=== PATIENT | male | born 1930 | race Caucasian/White ===

== ENCOUNTER 2016-05-11 18:26 | Inpatient (IN) | payer MEDICARE ==
--- NOTE | ~2016-05-11 | EKG ---
PATIENT: NOLA CARRASCO UNIT #: [id number] Ventricular Rate: 66 BPM Atrial Rate: 66 BPM P-R Interval: 228 ms QRS Duration: 136 ms Q-T Interval: 416 ms QTC Calculation(Bezet): 436 ms P Cullen: 70 degrees Calculated R Cullen: -9 degrees Calculated T Cullen: 21 degrees Diagnosis Line: Sinus rhythm with 1st degree A-V block Diagnosis Line: Right bundle branch block Diagnosis Line: Abnormal ECG Diagnosis Line: When compared with ECG of 11-MAY-2016 17:50, Diagnosis Line: (unconfirmed) Diagnosis Line: No significant change was found Diagnosis Line: Confirmed by MARIUSZ WALLIS MD ([id number]) on 05/12/2016 Diagnosis Line: 5:33:36 PM INTERPRETING MD: BIMAL RONDON
--- NOTE | ~2016-05-11 | CT71 ---
[facility] A Service of [facility] & [facility] RADIOLOGY TEXT RESULTS PATIENT: NOLA CARRASCO LOCATION: [facility] 327- : 32 UNIT #: [id number] AGE: [address]: Hardik De La O MD SEX: M ORDER DR: [id number] [facility] [address] [place], [place] [address] [id number] I MR#: [id number] Acc #: [id number] NAME: NOLA CARRASCO. : 1930 SEX: M STUDY DATE/TIME: 05/11/2016 18:47 UNIT: A U ROOM: [facility] STUDY DESCRIPTION: CT Head Wo Contrast Attending Physician: Enedina Virgen M.D. Referring Physician: Marysol Gamboa A.P.R.N. Ordering Physician: Jose Cadena M.D. Primary Care Physician: Marysol Gamboa A.P.R.N. MEDICAL IMAGING REPORT This report is preliminary unless electronic signature is present EXAM Head CT without. DATE OF EXAM 05/11/2016 HISTORY Loss of site, left eye weakness starting this morning. 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 COMMENT CT of the brain performed axial plane without contrast. COMPARISON There is a comparison from 03/08/2016. TECHNIQUE NOTE: This CT exam was performed with one or more of the following radiation dose reduction techniques: automatic exposure control, adjustment of mA and/or kV according to patient size, and iterative reconstruction. FINDINGS There is no displaced calvarial fracture. There is mucosal thickening in the paranasal sinuses, including right greater than left maxillary sinus with partial opacification of the bilateral ethmoid air cells, but no air-fluid level. Mild mucosal thickening in the sphenoid sinuses and some fluid or inflammatory change in the right greater than left-sided mastoid air cells. There is vascular calcification at the base of the brain. There is no evidence for acute intracranial hemorrhage or extraaxial fluid collection. There is no intracranial mass effect. This study would not [facility] A Service of [facility] & [facility] RADIOLOGY TEXT RESULTS PATIENT: NOLA CARRASCO LOCATION: [facility] 327-01 : 32 UNIT #: [id number] AGE: [address]: Hardik De La O MD SEX: M ORDER DR: be sensitive for intracranial metastatic disease. There is a vague area of low attenuation in the left yolanda-mikal raising concern for small vessel disease in the patient's age group, but otherwise nonspecific. Mild periventricular white matter low-attenuation is probably due to small vessel disease. The patient has had cataract surgery bilaterally. Globes are intact. No acute cortical infarct is suspected but if this is the clinical concern followup imaging is recommended preferably with MRI if the patient is a candidate. IMPRESSION 1. No acute intracranial abnormality suspected but if there is clinical concern for acute CVA followup imaging is recommended preferably with MRI if the patient is candidate. Noncontrast head CT is also not sensitive for intracranial metastatic disease. There is no intracranial mass effect appreciated. I suspect there is some small vessel disease changes present. 2. Paranasal sinus disease, but no sinus air-fluid level. Dictated by... Jalyn Arguello M.D. THIS IS AN ELECTRONICALLY VERIFIED REPORT Jalyn Arguello M.D. at 05/12/2016 10:22 AM ISAÍAS/nicol TD: 05/12/2016 00:05 JOB #: [id number] MEDICAL IMAGING REPORT COPY
--- NOTE | ~2016-05-11 | CT23 ---
[facility] A Service of [facility] & [facility] RADIOLOGY TEXT RESULTS PATIENT: NOLA CARRASCO LOCATION: [facility] 327- : 32 UNIT #: [id number] AGE: [address]: Hardik De La O MD SEX: M ORDER DR: [id number] [facility] [address]. [place], [place] [address] [id number] I MR#: [id number] Acc #: [id number] NAME: NOLA CARRASCO. : 1930 SEX: M STUDY DATE/TIME: 05/11/2016 18:53 UNIT: [address] ROOM: [facility] STUDY DESCRIPTION: CT Angio Neck Attending Physician: Hardik De La O M.D. Referring Physician: Jatinder GrossPConstanceRJennifer Ordering Physician: Jose Cadena M.D. Primary Care Physician: Selam GrossRJennifer MEDICAL IMAGING REPORT This report is preliminary unless electronic signature is present REVISED REPORT SEE ADDENDUM EXAM CT angiogram of head-neck vessels HISTORY Vision loss, loss of sight left eye, weakness, symptoms started this morning, left eye artery occlusion today per patient provided history, history of lymphoma and pancreatic cancer, history of glaucoma. COMMENT This CT exam was performed with one or more of the following radiation dose reduction techniques: Automatic exposure control, adjustment of mA and/or kV according to patient size, and iterative reconstruction. CT angiography head-neck vessels performed during the intravenous administration of 100 mL of Isovue-370 with imaging acquired in the axial plane followed by multiple reconstructed and reformatted images for the purpose of 3-D CT angiography of the head and neck vessels. There is an earlier noncontrast head CT for comparison. There is no prior study of the vessels. CT ANGIOGRAM NECK: There is atherosclerotic vascular calcification at the arch involving great vessel origins, but there probably is not hemodynamically significant narrowing at the great vessel origins from the arch. The innominate origin is not in the field of view. Mild calcified plaque also at the origin of the right subclavian. Evaluation of the right carotid system shows essentially 0% stenosis at the right carotid bifurcation by NASCET criteria. Mild plaque at the origin of the right external carotid artery. There is some calcified plaque at the right carotid siphon with mild stenosis at the supraclinoid STS. [facility] A Service of [facility] & [facility] RADIOLOGY TEXT RESULTS PATIENT: NOLA CARRASCO LOCATION: [facility] 327-01 : 32 UNIT #: [id number] AGE: [address]: Hardik De La O MD SEX: M ORDER DR: ICA likely. Assessment of the left carotid system shows partially calcified atherosclerotic plaque at the bifurcation, mild narrowing of the distal left common carotid artery but by NASCET criteria, there does not appear to be hemodynamically significant narrowing at the proximal internal carotid artery. Using NASCET criteria, essentially 0% stenosis of the left internal carotid artery. There is some calcified plaque in the left carotid siphon with mild stenosis most apparent at the supraclinoid ICA. Right vertebral artery has mild calcified plaque at its origin but this is probably not resulting in hemodynamically significant narrowing. The vessel is patent in the neck. Left vertebral artery has mild calcified plaque at its origin but this is probably not resulting in hemodynamically significant narrowing and the left vertebral artery is patent in the neck. Vertebral system essentially codominant. Evaluation of the intracranial circulation shows improper 3-D kpchk-qlc-sihklt MIP reconstructed imaging. Since this is an acute stroke study, I am interpreting the examination as is and requesting proper reformats. Allowing for this, there is no obvious intracranial vascular cutoff. There is origin to the left posterior cerebral artery distribution. I believe there is a small anterior communicator present. No focal central stenosis is seen. The dural venous sinuses are patent. There is a small right posterior communicator with probably a small infundibulum at its origin versus a 2-3 mm aneurysm. Consider followup with MR angiography to assess for change. The left P1 vessel is probably hypoplastic. There is generalized atrophy. Please be aware that a CT angiogram is not sensitive for retinal artery or ophthalmic artery occlusion. These structures are not typically well seen on the CT angiogram. Some flow can be seen in the bilateral ophthalmic arteries proximally. Patient has had cataract surgery bilaterally. There is streak artifact from dental metal. There is some paranasal sinus disease. There are an increased number of lymph nodes in the neck, many of which are enlarged and this is consistent with lymphoma history. Also multiple enlarged supraclavicular lymph nodes and probably partial demonstration of lymphadenopathy in the upper chest. One of the largest jugular chain level IVB lymph nodes on the right about 2.9 cm long-axis dimension. Again, multiple enlarged nodes seen. There are degenerative changes in the cervical spine. There are postoperative changes to the cervical spine. IMPRESSION 1. There is atherosclerotic vascular calcification involving the neck vasculature, but, by NASCET criteria, essentially 0% stenosis at either carotid bifurcation. Both vertebral arteries are patent. [facility] A Service of [facility] RADIOLOGY TEXT RESULTS PATIENT: NOLA CARRASCO LOCATION: [facility] : 32 UNIT #: [id number] AGE: [address]: Hardik De La O MD SEX: M ORDER DR: Vertebral system is fairly codominant. 2. Disease in the carotid siphons bilaterally with probably mild bilateral supraclinoid ICA narrowing. 3. No intracranial vascular cutoff or focal central stenosis is suspected. Vascular variations are discussed above. There is a small infundibulum or 2-3 mm aneurysm origin of the right posterior communicator. Consider a 1-year followup MR angiogram to reassess, given patient age group and other multiple medical problems. 4. Lymphadenopathy in the neck consistent with known lymphoma. 5. Please be aware that a CT angiogram does not typically evaluate the status of ophthalmic or retinal arteries, given the small size of these vessels. Some flow can be seen in the bilateral relatively proximal ophthalmic arteries. 6. Please be aware there is some technical limitation of the gphiq-ker-lnnood MIP images as noted above. STAT * RESULT Dictated by... Jalyn Arguello M.D. THIS IS AN ELECTRONICALLY VERIFIED REPORT Jalyn Arguello M.D. at 05/11/2016 11:03 PM ISAÍAS/asha TD: 05/11/2016 21:26 JOB #: [id number] ADDENDUM EXAM Addendum to the CT angiogram head and neck from 05/11/2016 ADDENDUM The 3-D MIP twist and tumble images have been post processed again. They are now of better quality. Review of the additional imaging again shows no intracranial vascular cutoff. IMPRESSION Additional images reviewed. Dictated by... Jalyn Arguello M.D. [facility] A Service of [facility] RADIOLOGY TEXT RESULTS PATIENT: NOLA CARRASCO [address] [id number] : 32 UNIT #: [id number] AGE: [address]: Hardik De La O MD SEX: M ORDER DR: THIS IS AN ELECTRONICALLY VERIFIED REPORT Jalyn Arguello M.D. at 05/15/2016 8:11 AM Farheen TD: 05/12/2016 16:09 JOB #: [id number] CC: Susan/lucius Please Delete MEDICAL IMAGING REPORT COPY
--- NOTE | ~2016-05-11 | HP ---
Unit #: [id number] #: [id number] Patient: NOLA CARRASCO [id number] [address] [place], [place] [address] [id number] I MR#: [id number] NAME: NOLA CARRASCO ROOM: [facility] Age: 85 Sex: M Admission Date: 05/11/2016 : 1930 Attending Physician: Enedina Virgen M.D. Referring Physician: Marysol Gamboa A.P.R.N. Primary Care Physician: Marysol Gamboa A.P.R.N. HISTORY AND PHYSICAL CHIEF COMPLAINT Sent by eye doctor for stroke workup. HISTORY OF PRESENT ILLNESS The patient is an 85-year-old male with a past medical history of hypertension, hyperlipidemia, cholangiocarcinoma, valvular heart disease, GERD, low grade lymphoma, who presented to the emergency department for evaluation of the above. The patient states that he was in his usual state of health until the morning of admission at 11:10 when he was watching television and noted loss of vision. He states that the loss of vision was in the lower aspect of his left eye. 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 He sent him to the emergency department for further evaluation. The patient denies a similar problem. He denies any headache. He had apparently seen Dr. Katz within the past year for eye exam. In the emergency department CT of the head was done and there were was nothing acute. CT angiogram of the head and neck showed no critical stenosis and no vascular cutoff. A right posterior communicating artery aneurysm is noted. The official voice clip is pending. He was given 325 mg of aspirin. He is being admitted to [facility] for evaluation and further treatment. PAST MEDICAL HISTORY 1. Admission to [facility] 11/28/2012 through 11/30/2012 for fever. 2. Hypertension. 3. Hyperlipidemia. 4. History of cholangiocarcinoma. 5. The patient underwent Whipple procedure in 05/2012 and was treated with chemotherapy. He is followed by Dr. Vargas. 6. 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 7. Valvular heart disease. 8. GERD. 9. Hypertension. 10. Hyperlipidemia. PAST SURGICAL HISTORY 1. Lymph node biopsy. 2. Rectal fistula repair. 3. Vasectomy. 4. Cervical disc surgery. Unit #: [id number] #: [id number] Patient: NOLA CARRASCO 5. Prostate surgery for BPH. 6. Excision of pilonidal cyst. 7. Removal of nasal polyps. 8. Whipple procedure. SOCIAL HISTORY The patient lives with his . There is no tobacco or alcohol use. FAMILY HISTORY Notable for lung cancer. ALLERGIES None. HOME MEDICATIONS 1. Combigan eye drops t.i.d. 2. Losartan 100 mg daily. 3. Omeprazole 20 mg daily. 4. Amlodipine 5 mg at bedtime. 5. Colace 100 mg t.i.d. p.r.n. REVIEW OF SYSTEMS A 10 point review of systems is negative except as indicated in the HPI. PHYSICAL EXAMINATION VITAL SIGNS: Temperature is 97.9, pulse 80, respirations 17, blood pressure 177/79, oxygen saturation is 97% on room air. GENERAL: The patient is a male who is awake and alert in no acute distress. HEENT: Head is atraumatic. Mucous membranes are moist. NECK: Supple. Trachea is midline. CARDIOVASCULAR: Regular rate and rhythm. LUNGS: Clear to auscultation bilaterally with no increased work of breathing. ABDOMEN: Soft, nontender, with bowel sounds present in all four quadrants. EXTREMITIES: Nontender with no pedal edema. NEUROLOGIC: The patient is awake and alert. He follows commands. He does have loss of the lower visual field involving the left eye. There is no facial asymmetry. PSYCH: Mood and affect are normal. Patient is cooperative. SKIN: Skin of examined areas is warm and dry. DIAGNOSTIC STUDIES CARDIOLOGY STUDIES: EKG shows sinus rhythm with first degree AV block. A right bundle branch is also noted. Heart rate is 77 BPM. IMAGING STUDIES: CT of the head shows nothing acute. CT of the head and neck angiogram shows no critical stenosis. No vascular cutoff. A possible aneurysm in the right posterior communicating artery is noted. There is also lymphadenopathy involving the neck consistent with lymphoma. INR is 1. Troponin is less than 0.05, comprehensive metabolic panel is notable for a glucose of 114, BUN and creatinine 28 and 1.5 respectively. Alk phos is 99, complete blood count notable for white blood cell count of 34.9, platelets are 121. Sed rate is 31, CRP is less than 0.5. Unit #: [id number] #: [id number] Patient: NOLA CARRASCO The patient is an 85-year-old male with: 1. Visual field defect concerning for cerebrovascular accident. The patient received 325 mg of aspirin in the emergency department. 2. Acute kidney injury. 3. The patient's creatinine was 1.2 on 03/11/2016 and it is 1.5 today. He is on losartan, which could be contributing. 4. Hypertension. 5. Hyperlipidemia. 6. History of cholangiocarcinoma, status post Whipple procedure. 7. Valvular heart disease. 8. GERD. 9. 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 10. 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 PLAN 1. Admit to intermediate level for observation. 2. Normal saline of 25 mL an hour. 3. Healthy heart diet. 4. MRI of the brain without contrast. 5. Neuro checks. 6. Stroke protocol per neurology. 7. Consult Dr. Helm regarding cerebrovascular accident. 8. Urinalysis with culture and sensitivity. 9. Hold losartan. 10. Serial cardiac enzyme. 11. Strict I's and O's. 12. Repeat labs in the morning. 13. SCDs for DVT prophylaxis. Dictated by Enedina Virgen M.D. ZAMZAM/suzi TD: 05/12/2016 04:58 JOB #: [id number] HISTORY AND PHYSICAL X Enedina Virgen MD X HISTORY AND PHYSICAL
--- NOTE | ~2016-05-11 | CR72 ---
[facility] A Service of [facility] & [facility] RADIOLOGY TEXT RESULTS PATIENT: NOLA CARRASCO LOCATION: [facility] 327-01 : 32 UNIT #: [id number] AGE: [address]: Hardik De La O MD SEX: M ORDER DR: [id number] [facility] [address] [place], [place] [address] [id number] I MR#: [id number] Acc #: [id number] NAME: NOLA CARRASCO : 1930 SEX: M STUDY DATE/TIME: 05/11/2016 17:47 UNIT: [address] ROOM: [facility] STUDY DESCRIPTION: CR Chest Single View Portable Attending Physician: Enedina Virgen M.D. Referring Physician: Marysol Gamboa A.P.R.N. Ordering Physician: Jose Cadena M.D. Primary Care Physician: Marysol Gamboa A.P.R.N. MEDICAL IMAGING REPORT This report is preliminary unless electronic signature is present EXAM Portable chest. DATE OF EXAM 05/11/2016 HISTORY 85-year-old male with weakness beginning today. COMPARISON Chest, 11/28/2012. FINDINGS Frontal chest demonstrates clear lungs. No pleural effusion or pneumothorax. Heart size and mediastinum are normal. Pulmonary vasculature normal. IMPRESSION No acute cardiopulmonary findings. Dictated by... Chase Cr M.D. THIS IS AN ELECTRONICALLY VERIFIED REPORT Chase Cr M.D. at 05/12/2016 9:18 AM KRUPA/nicol TD: 05/11/2016 23:31 JOB #: [id number] MEDICAL IMAGING REPORT COPY
--- NOTE | ~2016-05-11 | A ---
[facility] Nutrition Therapy DATE: 05/12/16 Patient: NOLA CARRASCO Physician: PEDRO Address: [address] Room/Bed: [address] [place] [address], Zip: [place] [address] Admit Date: 05/11/16 Date of : 32 Height: 6 2 Weight: 210 95.4 NUTRITIONAL ASSESSMENT: REASON: STROKE PROTOCOL CONSULT 85 YO MALE ADMITTED FOR POSSIBLE CVA PMH: HTN, HLD, VALVULAR HEART DISEASE, GERD Anthropometrics: HT: 6'2" WT: 95.4 KG BMI: 27 DIET: HEART HEALTHY Assessment: RD spoke with the pt at bedside. Pt reports eating well since diet advancement, and denies having any chewing or swallowing issues. RD provided heart healthy diet education, and provided the pt and his with printed materials for reference. RD encouraged the pt to contact RD with any quesitons. RD to remain available. Recommendations: 1. Pt to follow a heart healthy diet as intstructed by RD. Please consult RD for any further nutritional needs. Respectfully, JASMYN MCCLAIN RD, LD [facility] cc: client file
--- NOTE | ~2016-05-11 | CT17 ---
[facility] A Service of [facility] & [facility] RADIOLOGY TEXT RESULTS PATIENT: NOLA CARRASCO LOCATION: [facility] 327-01 : 32 UNIT #: [id number] AGE: [address]: Enedina Virgen MD SEX: M ORDER DR: [id number] [facility] [address] [facility] [address]. [place], [place] [address] [id number] E MR#: [id number] Acc #: [id number] NAME: NOLA CARRASCO : 1930 SEX: M STUDY DATE/TIME: 05/11/2016 18:53 UNIT: [facility] ROOM: STUDY DESCRIPTION: CT Angio Head Attending Physician: Jose Cadena M.D. Referring Physician: Marysol Gamboa A.P.R.N. Ordering Physician: Jose Cadena M.D. Primary Care Physician: Marysol Gamboa A.P.R.N. MEDICAL IMAGING REPORT This report is preliminary unless electronic signature is present EXAM CT angio head, 05/11/2016 HISTORY Vision loss, loss of sight left eye, weakness, symptoms started this morning, left eye artery occlusion today per patient provided history, history of lymphoma and pancreatic cancer, history of glaucoma. FINDINGS Please see CT ANGIO NECK report for combined text results. STAT * RESULT Dictated by... Jalyn Arguello M.D. THIS IS AN ELECTRONICALLY VERIFIED REPORT Jalyn Arguello M.D. at 05/11/2016 11:03 PM ISAÍAS/asha TD: 05/11/2016 21:42 JOB #: [id number] MEDICAL IMAGING REPORT COPY
--- NOTE | ~2016-05-11 | MR17 ---
[facility] A Service of [facility] & [facility] RADIOLOGY TEXT RESULTS PATIENT: NOLA CARRASCO LOCATION: [facility] 327- : 32 UNIT #: [id number] AGE: [address]: Hardik De La O MD SEX: M ORDER DR: [id number] [facility] [address] [place], [place] [address] [id number] I MR#: [id number] Acc #: [id number] NAME: NOLA CARRASCO. : 1930 SEX: M STUDY DATE/TIME: 05/12/2016 12:20 UNIT: [address] ROOM: [facility] STUDY DESCRIPTION: MR Brain WWo Contrast Attending Physician: Hardik De La O M.D. Referring Physician: Marysol Gamboa A.P.R.N. Ordering Physician: Andre Helm M.D. Primary Care Physician: Marysol Gamboa A.P.R.N. MRI CENTER REPORT This report is preliminary unless electronic signature is present. EXAM Brain MRI with and without contrast. HISTORY Loss of sight in left eye yesterday. Additional history of pancreatic cancer. TECHNIQUE Multiplanar imaging of the brain was performed with and without contrast including diffusion weighted images. 20 mL of MultiHance was used. FINDINGS On diffusion weighted images, there is no evidence of abnormal restricted diffusion to suggest a recent infarct. The routine brain images show mild chronic ischemic changes in the periventricular deep white matter and mild atrophy. There is no evidence of mass lesion, hemorrhage or edema. Postcontrast imaging shows no abnormal enhancement. Extraaxial structures are remarkable for inflammatory changes in the petrous and mastoid air cells bilaterally. There is mild mucosal thickening in the paranasal sinuses as well. IMPRESSION 1. No acute findings. 2. 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 3. Atrophy with mild chronic ischemic changes around the ventricles. STAT * RESULT Dictated by... Franco Roldan M.D. THIS IS AN ELECTRONICALLY VERIFIED REPORT Franco Roldan M.D. at 05/12/2016 4:37 PM [facility] A Service of [facility] & [facility] RADIOLOGY TEXT RESULTS PATIENT: NOLA CARRASCO LOCATION: [facility] 327-01 : 32 UNIT #: [id number] AGE: [address]: Hardik De La O MD SEX: M ORDER DR: Morteza TD: 05/12/2016 13:11 JOB #: [id number] MRI CENTER REPORT COPY
--- NOTE | ~2016-05-11 | CO ---
Unit #: [id number] #: [id number] Patient: NOLA CARRASCO [id number] [facility] [address] [facility]. [place], [place] [address] [id number] I MR#: [id number] NAME: NOLA CARRASCO ROOM: 327 Age: 85 Sex: M Admission Date: 05/11/2016 : 1930 Attending Physician: Hardik De La O M.D. Primary Care Physician: Marysol Gamboa A.P.R.N. Consultation Date: 05/12/2016 CONSULTATION REPORT PRIMARY CARE PHYSICIAN Marysol Gamboa A.P.R.N. REASON FOR CONSULTATION Loss of vision. PATIENT IDENTIFICATION This is an 85-year-old, right-handed, white male, who is evaluated in room 327 at [facility]. SOURCE OF INFORMATION The patient and evaluation done by admitting team and my discussion with ER physician. PROBLEM LIST 1. Hypertension. 2. Hyperlipidemia. 3. History of cholangiocarcinoma. 4. 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 5. Valvular heart disease. 6. GERD. 7. Lymph node biopsy. 8. Rectal fissure repair. 9. Vasectomy. 10. Cervical disk surgery. 11. Prostate surgery for BPH. 12. Excision of pilonidal cyst. 13. Removal of nasal polyps. 14. Whipple procedure. 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 and he suddenly noticed that in the left eye, he had loss of vision in the lower aspect. It was not in the right eye and he did not realize that part of the upper nasal quadrant was also gone. Now, he has very minimal residual towards the middle and outer temporal left quadrant, otherwise full loss of vision in the left eye. He ended up seeing Dr. Katz and he did a dilated ophthalmologic exam and told him that most likely he has retinal artery occlusion. So, he came to the hospital. He ended up having stroke work up. His CTA was okay. Other workup is in progress. He has had an MRI done. His CT was okay. There is nothing Unit #: [id number] #: [id number] Patient: NOLA CARRASCO suggesting hypercoagulable state yet and there was nothing suggesting dysrhythmia. No falls or injuries. No eye pain. No prior events of TIA, stroke or seizures. He was given aspirin. PAST MEDICAL HISTORY As discussed above. PAST SURGICAL HISTORY As discussed above. ALLERGIES None. HOME MEDICATIONS Combigan eyedrops, losartan, omeprazole, amlodipine, Colace. FAMILY HISTORY Lung cancer. SOCIAL HISTORY The patient is . He lives with his . No tobacco, alcohol, or drug use. REVIEW OF SYSTEMS CONSTITUTIONAL: The patient denies any weight issues, fever, chills, rigor, or sweats. HEENT: No headaches. No double vision, earache, runny nose, or sore throat. CARDIOVASCULAR: No chest pain, clubbing, cyanosis, orthopnea, or palpitation. PULMONARY: No shortness of air, cough, or expectoration. GI: No nausea, vomiting, diarrhea, or constipation. GENITOURINARY: No genitourinary symptoms. EXTREMITIES: No extremity problems, otherwise no back problems. PSYCHIATRIC: No psychotic issue. NEUROLOGIC: As discussed. LYMPHATIC: He has a history of lymphoma and cholangiocarcinoma as discussed. No other hematologic, dermatologic, or endocrine problems. PHYSICAL EXAMINATION VITAL SIGNS: Temperature 97.8, pulse 80, respirations 18, blood pressure 153/79, O2 sats were 95% to 100%. Weight of 210 pounds. BMI was 27. NEUROLOGICAL: The patient is awake. He is alert. He is oriented. He can name and he can follow commands. No right/left confusion. No finger agnosia. Cranial nerve examination demonstrates full haq of vision to confrontation on the right side. Left side, there is a fraction, which is the medial portion of the left superior temporal quadrant. He cannot see in the periphery. Eye movements are conjugate. Pupils are sluggishly Unit #: [id number] #: [id number] Patient: NOLA CARRASCO reactive, size about 2 mm. I could not do a funduscopic examination. No ptosis. No nystagmus. Sensation on the face and scalp are normal. Strength of muscles of facial expression normal. Hearing seemed to be intact. Tongue was midline. Uvula was midline. Palate elevation was normal. Head turning and shoulder shrugs were unremarkable. Motor examination demonstrated normal bulk, tone. Strength was essentially 5/5. Sensory examination is intact for soft touch and pain sensation. No extinction was seen. Romberg was not evaluated. Gait examination was deferred. I could not get any reflexes. Toes are equivocal. Coordination was normal. DIAGNOSTIC STUDIES LABORATORY RESULTS: Reviewed. His hemoglobin A1c was 6.3. His cholesterol was 149, LDL was 97. White count was 31.2, it was 34.9 yesterday, hemoglobin was 12.9, platelet count is 110. Urinalysis did not show anything. IMAGING STUDIES: Reviewed. CT of head and CTA reviewed and essentially unremarkable. IMPRESSION This is a very interesting 85-year-old gentleman with loss of vision. This may be central retinal artery occlusion that may have a little bit of area spared. Relying on ophthalmology evaluation. There is nothing on the right side. So, that means that there may be just retinal artery problem. I definitely want to do an MRI. If the MRI does not show anything in the brain, then we can just put him on aspirin and do electively event monitor and GLADYS. I will put him on Lipitor also. If the MRI shows something like embolic type phenomenon acutely, then I may have to aggressively anticoagulate him here and go from there. Stroke education and modification of stroke risk factors, lipid-lowering medication, and follow up with Dr. Esparza. Also, he is seeing laryngologist anyway, so we may ask them to help us guide us regarding coagulation state in this patient. Avoid dehydration. We will check his B12 level, folate level and other tests. Call me for any other questions, issues, or concerns and if everything is okay, he may be discharged later to follow up as outpatient. Dictated by... Bing Plata/ronna TD: 05/13/2016 02:04 JOB #: [id number] Unit #: [id number] #: [id number] Patient: NOLA CARRASCO CONSULTATION REPORT X Andre Helm MD CONSULTATION REPORT
--- NOTE | ~2016-05-11 | DS ---
Unit #: [id number] #: [id number] Patient: NOLA CARRASCO [id number] [address] [place], [place] [address] [id number] I MR#: [id number] NAME: NOLA CARRASCO. ROOM: 327 Age: 85 Sex: M Admission Date: 05/13/2016 : 1930 Discharge Date: 05/14/2016 Attending Physician: Hardik De La O M.D. Referring Physician: Marysol Gamboa A.P.R.N. Primary Care Physician: Marysol Gamboa A.P.R.N. DISCHARGE SUMMARY DIAGNOSIS ON ADMISSION Acute cerebrovascular accident. DIAGNOSES ON DISCHARGE 1. Left central retinal artery occlusion. 2. History of lymphoma. 3. Hypertension. 4. Hyperlipidemia. 5. Gastroesophageal reflux disease. 6. History of Whipple procedure. 7. History of cholangiocarcinoma. 8. Acute kidney injury, resolved. CONSULTATIONS 1. Dr. Helm in Neurology consultation. 2. Dr. Vargas in Oncology consultation. DIAGNOSTIC STUDIES LABORATORY: Creatinine is 1.5, sodium 136, and potassium is 3.9. WBC 26.4, hemoglobin 12.4, and platelet count is 103,000. Urine culture did not reveal any growth. IMAGING: CT angiogram of the neck revealed atherosclerotic vascular calcification involving the neck vasculature. CT scan of the abdomen and pelvis revealed extensive lymphadenopathy in the abdomen and pelvis consistent with patient's slow-growing lymphoma. MRI of the brain did not reveal any acute findings. There was chronic sinusitis and mastoid air cells present bilaterally. HOSPITAL COURSE An 85-year-old male presented to the hospital with left eye decreased vision. Details are as per admission History and Physical. Patient was seen by Dr. Helm in consultation, who did workup. After workup, it was thought that patient has left central retinal artery occlusions, and she was advised to take Lipitor and aspirin. History of low-grade lymphoma. Patient was seen by Dr. Vargas in consultation who ordered a CT scan of the abdomen. The results are as above. Patient will follow up with him on an outpatient basis. Today, patient is comfortable and is not in any acute distress. He wants to go home. PHYSICAL EXAMINATION Unit #: [id number] #: [id number] Patient: NOLA CARRASCO VITAL SIGNS: Temperature of 97.5, pulse is 66 per minute, respiratory rate is 16 per minute, and blood pressure is 137/74. HEENT: No conjunctival congestion. Sclerae are nonicteric. NECK: Supple. Trachea is central. RESPIRATORY: Breath sounds equal bilaterally. No wheezes or crackles. HEART: Regular rate and rhythm, S1 and S2. ABDOMEN: Soft and nontender. Bowel sounds are present in all four quadrants. NEUROLOGICAL: Strength is 5+ bilaterally. SKIN: Warm and dry. RECOMMENDATIONS ON DISCHARGE 1. Condition is stable. 2. Activity as tolerated. DISCHARGE MEDICATIONS 1. Norvasc 5 mg at bedtime. 2. Colace 100 mg t.i.d. p.r.n. 3. Losartan 100 mg daily. 4. Multivitamin 1 tablet p.o. daily. 5. Enteric-coated aspirin 325 mg p.o. daily. 6. Prilosec 20 mg p.o. daily. 7. Lipitor 40 mg p.o. at bedtime. FOLLOWUP Patient is advised to follow with primary care physician in one week and with Dr. Fabian Esparza in three to four weeks. Patient is advised to follow up with Dr. Vargas as scheduled. Patient is advised to have a fasting lipid profile and LFTs done in six weeks with primary care physician. The plan was discussed in detail with patient and family, and they showed complete understanding. Dictated by... Bing Sanchez TD: 05/14/2016 17:53 JOB #: [id number] CC: Fabian Esparza II., M.D. Ajmal H. Bangash, M.D. Vijay M. Raghavan, M.D. DISCHARGE SUMMARY X Hardik De La O MD DISCHARGE SUMMARY
--- NOTE | ~2016-05-11 | CT2 ---
[facility] A Service of [facility] & [facility] RADIOLOGY TEXT RESULTS PATIENT: NOLA CARRASCO LOCATION: [facility] 327- : 32 UNIT #: [id number] AGE: [address]: Hardik De La O MD SEX: M ORDER DR: [id number] [facility] [address] [facility]. [place], [place] [address] [id number] I MR#: [id number] #: [id number] NAME: NOLA CARRASCO. : 1930 SEX: M STUDY DATE/TIME: 05/12/2016 17:46 UNIT: [address] ROOM: [facility] STUDY DESCRIPTION: CT Abd and Pelv W Cont Attending Physician: Hardik De La O M.D. Referring Physician: Marysol Gamboa A.P.R.N. Ordering Physician: Hardik De La O M.D. Primary Care Physician: Marysol Gamboa A.P.R.N. MEDICAL IMAGING REPORT This report is preliminary unless electronic signature is present EXAM CT abdomen and pelvis with contrast 05/12/2016 HISTORY Followup pancreatic cancer 2012, also has a known history of lymphoma. COMMENT CT of the abdomen and pelvis performed during the intravenous administration of 100 mL of Isovue-370. Small amount of oral contrast is also present. This CT exam was performed with one or more of the following radiation dose reduction techniques: automatic exposure control, adjustment of mA and/or kV according to patient size, and iterative reconstruction. COMPARISON STUDIES Comparison study is from 11/19/2015. FINDINGS The lung bases are clear. There is lymphadenopathy in the periaortic region lower chest. This is present previously and sample measurements relatively stable. CT ABDOMEN: CT abdomen shows a stable calcified lesion right posterior lobe of the liver. No suspicious liver mass. Patient has had a cholecystectomy. There are splenic granulomata. The tail of the pancreas is fatty replaced and atrophic. The patient has had a Whipple procedure. Patient has extensive lymphadenopathy in the abdomen and pelvis consistent with known lymphoma diagnosis. Extensive lymphadenopathy is most confluent at the root of the mesentery and this includes postoperative pancreatic bed area. It is not possible to distinguish between lymphadenopathy from the patient's lymphoma or lymphadenopathy from STS. [facility] A Service of [facility] RADIOLOGY TEXT RESULTS PATIENT: NOLA CARRASCO LOCATION: [facility] 327-01 : 32 UNIT #: [id number] AGE: [address]: Hardik De La O MD SEX: M ORDER DR: pancreatic cancer. Some sample measurements are as follows. There is a 3.4 cm in diameter right anterior mesenteric lymph node which appears to be stable. There is what is probably some matted lymphadenopathy to the left of the root of the mesentery which is mildly larger currently about 3.6 x 2.1 cm compared to 3.2 x 1.8 cm. There is a lymph node anteriorly right paramedian mesenteric about 3.1 cm AP dimension where it was previously about 2.2 cm AP dimension, increased in size. A large lymph node more inferiorly in the left anterior paramedian mesentery about 3.4 cm diameter as compared to 2.[address] PELVIS: In the pelvis again lymphadenopathy along the right external iliac chain about 3.5 x 2.3 cm as compared to 3.4 x 2.3 cm and along the left iliac chain about 3.2 x 1.9 cm compared to 2.4 x 1.7 cm. Overall lymphadenopathy in the abdomen and pelvis is mildly increasing and this is consistent with known diagnosis of a slow growing lymphoma. There is some bilateral perinephric stranding and bilateral renal parenchymal thinning. There is no hydronephrosis. There is an exophytic left upper pole renal cyst and a small probable cyst interpolar left kidney. There is what is likely a nonobstructing calculus at the left lower pole kidney, unchanged. There are vascular calcifications in the abdominal aorta but there is no abdominal aortic aneurysm. There is some ectasia of the right common iliac vessel. The adrenal glands are thickened bilaterally more so on the left than right but unchanged. There is disease at the origin of the celiac axis and superior mesenteric artery but the vessels are patent. I suspect that there is some component of wall thickening of the small bowel loop anastomosed with the stomach but this is best pursued with endoscopic evaluation. Circumferential thickening is suspected on current study, new from previous. Evaluation of the remainder of the pelvis shows severe sigmoid diverticulosis. There is stranding in the adjacent fat and I cannot exclude subtle diverticulitis but the appearance is not changed. The bladder is largely contracted and the patient has probably had prior TURP surgery to the prostate gland. Appendix not optimally seen but visualized portion is normal. Nothing to suggest bowel obstruction or appendicitis. No free intraperitoneal air. Arthritis in the sacroiliac joints, degenerative changes in the lumbar spine. IMPRESSION 1. Redemonstration of postoperative changes consistent with previous Whipple procedure. There is some circumferential thickening of the small bowel loop draining the gastric remnant which is probably new when comparison is made to the previous study from 11/19/2015. This is nonspecific and mucosal pathology is best characterized further with direct visualization. 2. This patient has extensive lymphadenopathy in the abdomen pelvis and the appearance is consistent with patient's known slow-growing lymphoma. Many of the lymph nodes are stable in size but others are mildly increased in size and sample measurements are given above. [facility] A Service of [facility] RADIOLOGY TEXT RESULTS PATIENT: NOLA CARRASCO LOCATION: [facility] 327- : 32 UNIT #: [id number] AGE: [address]: Hardik De La O MD SEX: M ORDER DR: Please be aware that it is not possible to distinguish between metastatic lymphadenopathy from the patient's prior pancreatic cancer and lymphadenopathy from the patient's known current lymphoma. 3. Post cholecystectomy but no intrahepatic biliary ductal dilatation. 4. Severe sigmoid diverticulosis. Not possible to exclude some mild superimposed diverticulitis but the appearance is not changed. There is no bowel obstruction, drainable fluid collection or free intraperitoneal air. 5. Degenerative change in the spine. 6. Extensive atherosclerotic vascular calcifications. 7. Visualized appendix is unremarkable. STAT * RESULT Dictated by... Jalyn Arguello M.D. THIS IS AN ELECTRONICALLY VERIFIED REPORT Jalyn Arguello M.D. at 05/15/2016 8:11 AM Farheen TD: 05/12/2016 18:25 JOB #: [id number] MEDICAL IMAGING REPORT COPY
--- NOTE | ~2016-05-11 | EKG ---
PATIENT: NOLA CARRASCO UNIT #: [id number] Ventricular Rate: 77 BPM Atrial Rate: 77 BPM P-R Interval: 230 ms QRS Duration: 136 ms Q-T Interval: 422 ms QTC Calculation(Bezet): 477 ms P [place]: 74 degrees Calculated R Jar[place]: 13 degrees Calculated T Jar[place]: 25 degrees Diagnosis Line: Sinus rhythm with 1st degree A-V block Diagnosis Line: Right bundle branch block Diagnosis Line: Abnormal ECG Diagnosis Line: When compared with ECG of 11-MAR-2016 09:49, Diagnosis Line: No significant change was found Diagnosis Line: Confirmed by MARIUSZ WALLIS MD ([id number]) on 05/12/2016 Diagnosis Line: 5:15:24 PM INTERPRETING MD: BIMAL RONDON
[2016-05-11 17:58] LABS: BASOPHIL# 0.1 X10e3 (0-0.3); BASOPHIL% 0.2 % (0-2.5); EOSINOPHIL# 0.3 X10e3 (0-0.7); EOSINOPHIL% 0.8 % (0.0-7.0); HEMATOCRIT 40.9 % (38.0-50.0); HEMOGLOBIN 13.8 gm/dL (13.0-16.0); LYMPHOCYTE# 25.5 X10e3 (1.0-3.5); MEAN CELL VOLUME 93.8 FL (83-96); MEAN CORPUSCULAR HEMOGLOBIN 31.6 PG (28-34); MEAN CORPUSCULAR HGB CONC 33.7 g/dL (30-36); MEAN PLATELET VOLUME 9.1 FL (6.5-11.5); MONOCYTE# 1.5 X10e3 (0-1.0); MONOCYTE% 4.3 % (3.0-12.0); NEUTROPHIL# 7.6 X10e3 (1.5-7.1); NEUTROPHIL% 21.7 % (40-75); PLATELET COUNT 121 X10e3 (140-420); RED BLOOD COUNT 4.36 X10e (3.90-5.60); RED CELL DISTRIBUTION WIDTH 14.3 % (11.0-15.5); WHITE BLOOD COUNT 34.9 X10e3 (4.0-10.5)
[2016-05-11 18:00] LABS: DIFF IND YES
[2016-05-11 18:06] LABS: PARTIAL THROMBOPLASTIN TIME 25.3 SECONDS (23.5-31.3); PROTHROMBIN TIME (PATIENT) 10.6 SECONDS (9.6-11.5)
[2016-05-11 18:10] LABS: POC - CKMB 1.5 ng/mL (0.0-7.9); POC - TROPONIN <0.05 ng/mL (<=0.05)
[2016-05-11 18:14] LABS: ALBUMIN SERUM 4.5 g/dL (3.5-5.0); ALKALINE PHOSPHATASE 99 U/L (32-92); ALT (SGPT) 16 U/L (10-40); AST (SGOT) 24 U/L (10-42); BILIRUBIN,TOTAL 0.7 mg/dL (0.2-2.0); BLOOD UREA NITROGEN 28 mg/dL (9-23); BUN/CREATININE RATIO 18.66; CALCIUM SERUM 9.2 mg/dL (8.4-10.2); CARBON DIOXIDE 25 mmol/L (22-31); CHLORIDE 107 mmol/L (100-111); CREATININE SERUM 1.5 mg/dL (0.6-1.4); GLOM FILT RATE Estimated 47.5 mL/min (>60); GLUCOSE FASTING 114 mg/dL (70-110); POTASSIUM 4.4 mmol/L (3.5-5.1); SODIUM 137 mmol/L (135-145)
[2016-05-11 18:16] LABS: BILIRUBIN, DIRECT <0.1 mg/dL (0.0-0.2); BILIRUBIN,INDIRECT 0.6 mg/dL (0.0-0.9)
[2016-05-11 18:17] LABS: PLATELET ESTIMATE DECREASED (NORMAL); RBC NORMAL YES
[2016-05-11 18:18] LABS: ANISOCYTOSIS SL
[~2016-05-11 18:26] MED LIST: AMLODIPINE BESYL5 MG PO; ASPIRIN PO; AUGMENTIN PO; BENAZEPRIL PO; CARDURA PO; CEROVITE SENIO1 EACH PO; CIALIS PO; COMBIGAN EYE DRO5 ML OU; COZAAR100 MG PO; DIFLUCAN100 MG PO; DOC-Q-LACE100 MG PO; DOCUSATE SODIU100 MG PO; FEOSOL PO; GLUCOSAMINE CHONDROI; GLUCOSAMINE-CH1 EAC8 PO; LEVOFLOXACIN500 MG PO; LOPRESSOR PO; LOSARTAN POTAS100 MG PO; LOSARTAN POTASS50 MG PO; LOTREL 5/20 MG1 CAP PO; MULTI-VITAMIN1 TAB PO; NORVASC PO; OMEPRAZOLE20 M1 PO; OMEPRAZOLE40 M1 PO; OMEPRAZOLE40 MG PO; ONE DAILY COMPL1 TA1 PO; PRAVACHOL PO; PRAVASTATIN SOD40 MG PO; SENIOR TABS1 EACH PO
[2016-05-12 01:17] LABS: CK TOTAL 50 IU/L (36-174)
[2016-05-12 02:23] LABS: URINE APPEARANCE CLEAR; URINE BILIRUBIN NEG (NEG); URINE BLOOD NEG (NEG); URINE COLOR YELLOW; URINE GLUCOSE NEG (NEG); URINE KETONE NEG (NEG); URINE LEUKOCYTE ESTERASE NEG (NEG); URINE NITRATE NEG (NEG); URINE PH 6.5 (5-8); URINE PROTEIN NEG (NEG); URINE SPECIFIC GRAVITY 1.023 (1.003-1.035); URINE UROBILINOGEN 0.2 MG/DL (NEG)
[2016-05-12 02:30] LABS: CULTURE INDICATED? NO
[2016-05-12 07:00] LABS: BASOPHIL# 0.2 X10e3 (0-0.3); BASOPHIL% 0.5 % (0-2.5); EOSINOPHIL# 0.3 X10e3 (0-0.7); EOSINOPHIL% 0.9 % (0.0-7.0); HEMATOCRIT 39.4 % (38.0-50.0); HEMOGLOBIN 12.9 gm/dL (13.0-16.0); LYMPHOCYTE# 18.5 X10e3 (1.0-3.5); LYMPHOCYTE% 59.4 % (17.0-45.0); MEAN CELL VOLUME 93.8 FL (83-96); MEAN CORPUSCULAR HEMOGLOBIN 30.6 PG (28-34); MEAN CORPUSCULAR HGB CONC 32.7 g/dL (30-36); MONOCYTE% 3.1 % (3.0-12.0); NEUTROPHIL# 11.2 X10e3 (1.5-7.1); NEUTROPHIL% 36.1 % (40-75); PLATELET COUNT 110 X10e3 (140-420); RED CELL DISTRIBUTION WIDTH 13.8 % (11.0-15.5); WHITE BLOOD COUNT 31.2 X10e3 (4.0-10.5)
[2016-05-12 07:01] LABS: DIFF IND NO
[2016-05-12 07:13] LABS: CK TOTAL 59 IU/L (36-174)
[2016-05-12 07:27] LABS: ALBUMIN SERUM 3.9 g/dL (3.5-5.0); ALKALINE PHOSPHATASE 86 U/L (32-92); ALT (SGPT) 14 U/L (10-40); AST (SGOT) 20 U/L (10-42); BILIRUBIN,TOTAL 0.6 mg/dL (0.2-2.0); BLOOD UREA NITROGEN 24 mg/dL (9-23); CALCIUM SERUM 9.1 mg/dL (8.4-10.2); CARBON DIOXIDE 25 mmol/L (22-31); CHLORIDE 106 mmol/L (100-111); CREATININE SERUM 1.2 mg/dL (0.6-1.4); GLOM FILT RATE Estimated ABOVE60 mL/min (>60); GLUCOSE FASTING 89 mg/dL (70-110); POTASSIUM 3.9 mmol/L (3.5-5.1); PROTEIN TOTAL SERUM 6.7 g/dL (6.0-8.3); SODIUM 140 mmol/L (135-145)
[2016-05-12 08:18] LABS: CHOLESTEROL 149 mg/dL (0-200); HDL CHOLESTEROL 28 mg/dL (29-75); LDL CHOLESTEROL 97 mg/dL (-130); LDL/HDL RATIO 3 RATIO (0-4); TRIGLYCERIDES 122 mg/dL (10-160)
[2016-05-12 12:45] LABS: FOLATE (FOLIC ACID) >24.0 ng/mL (>5.8)
[2016-05-12 13:44] LABS: PARTIAL THROMBOPLASTIN TIME 25.6 SECONDS (23.5-31.3); PROTHROMBIN TIME (PATIENT) 10.8 SECONDS (9.6-11.5)
[2016-05-13 06:02] LABS: BASOPHIL# 0.1 X10e3 (0-0.3); BASOPHIL% 0.3 % (0-2.5); EOSINOPHIL# 0.3 X10e3 (0-0.7); EOSINOPHIL% 1.1 % (0.0-7.0); HEMATOCRIT 36.9 % (38.0-50.0); HEMOGLOBIN 12.4 gm/dL (13.0-16.0); LYMPHOCYTE# 18.3 X10e3 (1.0-3.5); LYMPHOCYTE% 69.3 % (17.0-45.0); MEAN CELL VOLUME 92.3 FL (83-96); MEAN CORPUSCULAR HEMOGLOBIN 30.9 PG (28-34); MEAN CORPUSCULAR HGB CONC 33.5 g/dL (30-36); MEAN PLATELET VOLUME 9.1 FL (6.5-11.5); MONOCYTE# 1.1 X10e3 (0-1.0); MONOCYTE% 4.2 % (3.0-12.0); NEUTROPHIL# 6.6 X10e3 (1.5-7.1); NEUTROPHIL% 25.1 % (40-75); PLATELET COUNT 103 X10e3 (140-420); RED CELL DISTRIBUTION WIDTH 14.1 % (11.0-15.5); WHITE BLOOD COUNT 26.4 X10e3 (4.0-10.5)
[2016-05-13 06:08] LABS: DIFF IND NO
[2016-05-13 06:35] LABS: BLOOD UREA NITROGEN 21 mg/dL (9-23); BUN/CREATININE RATIO 19.09; CALCIUM SERUM 8.9 mg/dL (8.4-10.2); CARBON DIOXIDE 23 mmol/L (22-31); CHLORIDE 106 mmol/L (100-111); CREATININE SERUM 1.1 mg/dL (0.6-1.4); GLOM FILT RATE Estimated ABOVE60 mL/min (>60); GLUCOSE FASTING 102 mg/dL (70-110); POTASSIUM 3.9 mmol/L (3.5-5.1); SODIUM 136 mmol/L (135-145)
[2016-05-14] MEDS ORDERED: ASPIRIN ENTERI325 M1 PO (11:21)
[2016-05-14] MEDS ORDERED: LIPITOR40 MG PO (11:28)
== END 2016-05-14 12:26 | disposition home health service (06) | DRG 65 ==
LOC: CED 18:26 → CEDOF 21:55 → C3A PCU 05-13 16:46
PROVIDERS: Emergency Medicine; Family Medicine; Internal Medicine; Psychiatry & Neurology Neurology
PROC: B328YZZ Computerized Tomography (CT Scan) of Bilateral Internal Carotid Arteries using Other Contrast (ICD-10-PCS; principal; 2016-05-13)
PROC: B32GYZZ Computerized Tomography (CT Scan) of Bilateral Vertebral Arteries using Other Contrast (ICD-10-PCS; 2016-05-13)
DX: I63.9 Cerebral infarction, unspecified (principal); N17.9 Acute kidney failure, unspecified; I67.1 Cerebral aneurysm, nonruptured; I38 Endocarditis, valve unspecified; C85.90 Non-Hodgkin lymphoma, unspecified, unspecified site; H34.12 Central retinal artery occlusion, left eye; I10 Essential (primary) hypertension; E78.5 Hyperlipidemia, unspecified; K21.9 Gastro-esophageal reflux disease without esophagitis; H54.7 Unspecified visual loss
CPT/HCPCS: 36415; 70450; 70496; 70498; 70553; 71010; 74177; 80048; 80053; 80061; 80076; 81003; 82550; 82553; 82607; 82746; 82947; 83036; 84484; 85025; 85610; 85652; 85730; 86140; 87086; 93005; 93306; 94760; 96360; 99285; A9577; J1815; Q9967

== ENCOUNTER → 2016-06-29 | Outpatient (CLI) | payer MEDICARE ==
[~2016-06-29] MED LIST changes: +ASPIRIN ENTERI325 M1 PO; +LIPITOR40 MG PO
== END | disposition home or self-care (01) ==
LOC: CECH 06:08
DX: I63.8 Other cerebral infarction (principal)
CPT/HCPCS: 93312; J2250; J3010

== ENCOUNTER 2016-08-27 20:50 | Emergency (ER) | payer MEDICARE ==
--- NOTE | ~2016-08-27 | CR72 ---
[facility] A Service of [facility] RADIOLOGY TEXT RESULTS PATIENT: NOLA CARRASCO LOCATION: [facility] : 32 UNIT #: [id number] AGE: [address]: Maurizio Wall MD SEX: M ORDER DR: [id number] [facility] [address] [place], [place] [address] [id number] MR#: [id number] Acc #: [id number] NAME: NOLA CARRASCO : 1930 SEX: M STUDY DATE/TIME: 08/27/2016 22:36 UNIT: [facility] ROOM: STUDY DESCRIPTION: CR Chest Single View Portable Attending Physician: Maurizio Wall M.D. Ordering Physician: Maurizio Wall M.D. Primary Care Physician: Marysol Gamboa A.P.R.N. MEDICAL IMAGING REPORT This report is preliminary unless electronic signature is present EXAM Portable chest. INDICATION Generalized weakness, lightheadedness and shortness of air beginning today, 08/27. COMPARISON 05/11/16. FINDINGS A portable view of the chest was obtained. The heart size and vascularity are normal. Lungs are clear except for calcified left lung granuloma. Bones are unremarkable. IMPRESSION No active disease. Dictated by... Domingo Lentz M.D. THIS IS AN ELECTRONICALLY VERIFIED REPORT Domingo Lentz M.D. at 08/28/2016 12:39 PM FEL/kenya TD: 08/28/2016 09:07 JOB #: [id number] MEDICAL IMAGING REPORT Page 1 of 1 COPY
--- NOTE | ~2016-08-27 | EKG ---
PATIENT: NOLA CARRASCO UNIT #: [id number] Ventricular Rate: 70 BPM Atrial Rate: 70 BPM P-R Interval: 238 ms QRS Duration: 136 ms Q-T Interval: 410 ms QTC Calculation(Bezet): 442 ms P [place]: 48 degrees Calculated R [place]: -21 degrees Calculated T [place]: 9 degrees Diagnosis Line: Sinus rhythm with 1st degree A-V block Diagnosis Line: Right bundle branch block Diagnosis Line: Abnormal ECG Diagnosis Line: When compared with ECG of 12-MAY-2016 14:08, Diagnosis Line: No significant change was found Diagnosis Line: Confirmed by AMY JESUS MD ([id number]) on Diagnosis Line: 08/28/2016 5:47:58 PM INTERPRETING MD: BRENDEN
[2016-08-27 23:09] LABS: URINE SOURCE CLEAN CATCH
[2016-08-27 23:16] LABS: URINE APPEARANCE CLEAR; URINE BILIRUBIN NEG (NEG); URINE BLOOD 1+ (NEG); URINE COLOR YELLOW; URINE GLUCOSE NEG (NEG); URINE KETONE NEG (NEG); URINE LEUKOCYTE ESTERASE NEG (NEG); URINE NITRATE NEG (NEG); URINE PROTEIN NEG (NEG); URINE SPECIFIC GRAVITY 1.016 (1.003-1.035); URINE UROBILINOGEN 0.2 MG/DL (NEG)
[2016-08-27 23:19] LABS: URBCS1 AUWI 0-2 /[HPF] (0-2); URINE BACTERIA AUWI NEG (NEGATIVE); URINE SQUAMOUS EPITHELIAL CELL NONE SEEN /[HPF]; UWBCS1 AUWI 0-2 (0-5)
[2016-08-27 23:26] LABS: CULTURE INDICATED? NO
[2016-08-27 23:34] LABS: BASOPHIL# 0.1 X10e3 (0-0.3); BASOPHIL% 0.3 % (0-2.5); EOSINOPHIL# 0.3 X10e3 (0-0.7); EOSINOPHIL% 0.7 % (0.0-7.0); HEMATOCRIT 37.2 % (38.0-50.0); HEMOGLOBIN 12.3 gm/dL (13.0-16.0); LYMPHOCYTE# 27.8 X10e3 (1.0-3.5); LYMPHOCYTE% 74.8 % (17.0-45.0); MEAN CELL VOLUME 93.2 FL (83-96); MEAN CORPUSCULAR HEMOGLOBIN 30.8 PG (28-34); MEAN PLATELET VOLUME 8.9 FL (6.5-11.5); MONOCYTE# 1.3 X10e3 (0-1.0); MONOCYTE% 3.4 % (3.0-12.0); NEUTROPHIL# 7.8 X10e3 (1.5-7.1); NEUTROPHIL% 20.8 % (40-75); PLATELET COUNT 114 X10e3 (140-420); RED BLOOD COUNT 3.99 X10e (3.90-5.60); RED CELL DISTRIBUTION WIDTH 14.3 % (11.0-15.5); WHITE BLOOD COUNT 37.2 X10e3 (4.0-10.5)
[2016-08-27 23:37] LABS: DIFF IND YES; INR 2.4
[2016-08-27 23:38] LABS: PROTHROMBIN TIME (PATIENT) 26.1 SECONDS (9.6-11.5)
[2016-08-27 23:48] LABS: ALBUMIN SERUM 4.1 g/dL (3.5-5.0); BILIRUBIN, DIRECT 0.1 mg/dL (0.0-0.2); BILIRUBIN,INDIRECT 0.3 mg/dL (0.0-0.9); BILIRUBIN,TOTAL 0.4 mg/dL (0.2-2.0); BUN/CREATININE RATIO 26.92; CALCIUM SERUM 8.8 mg/dL (8.4-10.2); CREATININE SERUM 1.3 mg/dL (0.6-1.4); GLOM FILT RATE Estimated 50.5 mL/min (>60); POTASSIUM 4.1 mmol/L (3.5-5.1); PROTEIN TOTAL SERUM 7.5 g/dL (6.0-8.3)
[2016-08-28 00:06] LABS: POC - CKMB 2.5 ng/mL (0.0-7.9); POC - TROPONIN <0.05 ng/mL (<=0.05)
[2016-08-28 00:06] LABS: PLATELET ESTIMATE NORMAL (NORMAL)
[2016-08-28 00:30] LABS: %MB 2.3 % (0.0-4.0); MB 5.9 ng/ml
== END 2016-08-28 01:20 | disposition home or self-care (01) ==
LOC: CED 20:50
PROVIDERS: Emergency Medicine
DX: E86.0 Dehydration (principal)
CPT/HCPCS: 36415; 71010; 80048; 80076; 81003; 82550; 82553; 82947; 84484; 85025; 85610; 93005; 96360; 99285